=== PATIENT | female | born 1965 | race Hispanic/Latino ===

== ENCOUNTER 2018-11-25 14:02 | Emergency (ER) | payer SELFPAY ==
[~2018-11-25] VITALS: Ht 157.5 cm; Wt 87.1 kg
--- NOTE | 2018-11-25 15:30 | Diagnostic Imaging Report ---
Exam: Lumbar spine series Clinical history: Pain Findings: There is no evidence of acute fracture or malalignment. Degenerative disc disease is noted at L1-L2 level with decrease in disc height and endplate sclerosis. The soft tissue is unremarkable. Impression: 1. No radiographic evidence of acute osseous injury. Degenerative changes as described. Signed by: Dr. Wade Álvarez MD on 11/25/2018 3:27 PM
[2018-11-25 16:11] VITALS: BP 101/67
== END 2018-11-25 16:17 | disposition home or self-care (01) ==
LOC: ER 14:02
DX: M54.5 Low back pain (principal); S39.012A Strain of muscle, fascia and tendon of lower back, initial encounter
CPT/HCPCS: 72110; 99283

== ENCOUNTER → 2024-05-15 | Outpatient (REF) | payer OTHER | LOC: MAMMO 09:00 | PROVIDERS: ATTEND Family Medicine | DX: Z12.31 Encounter for screening mammogram for malignant neoplasm of breast (principal) | CPT/HCPCS: 77067 ==

== ENCOUNTER 2024-11-28 08:00 | Outpatient (RCR) | payer OTHER | END 2024-11-30 | LOC: PT 08:00 | PROVIDERS: ATTEND Physician Assistant | DX: M75.81 Other shoulder lesions, right shoulder (principal) ==

== ENCOUNTER → 2024-12-12 | Day surgery (SDC) | payer OTHER ==
[2024-12-10 09:18] LABS: BASOPHILS % 0.6 % (0.0-1.0); EOSINOPHILS % 1.7 % (0.0-6.0); LYMPHOCYTES % 23.9 % (18.0-39.1); MONOCYTES % 11.1 % (4.4-11.3); NEUTROPHILS % 62.5 % (38.7-80.0); RED CELL DISTRIBUTION WIDTH 14.6 % (11.7-14.4)
[2024-12-10 09:40] LABS: EST GLOMERULAR FILTRATION RATE 104.0 ML/MIN (>=60)
[~2024-12-12] MED LIST: ACETAMINOPHEN 1000 MG/100 ML 100 ML IV ONE; AMLODIPINE BESY10 MG PO; CELEBREX100 MG PO; CETIRIZINE HCL10 MG PO; DEXAMETHASONE SOD PHOS INJ 4 MG/ML SDV ONE; FENTANYL CITRATE/PF 100MCG/2 ML INJ ONE; GABAPENTIN300 MG PO; HYDROCHLOROTHIA25 MG PO; LABETALOL HCL100 MG PO; LEVOTHYROXINE112 MCG PO; LIDOCAINE HCL 2% LOCAL INJ 5 ML SDV VIAL INJ ONE; LOSARTAN POTAS100 MG PO; MIDAZOLAM HCL 2 MG/2 ML VIAL ONE; ONDANSETRON HCL INJ 2MG/ML 2ML 2 MG/ML VIAL ONE; OZEMPIC2 MG/0.75 SC; PANTOPRAZOLE SO40 MG PO; PAROXETINE HCL20 MG PO; PROPOFOL IV EMULSION 10 MG/ML 20 ML VIAL ONE; SEVOFLURANE INHAL SOLN 250 ML PEN BTL ONE; SULFASALAZINE500 MG PO; ULTRAM 50MG50 MG PO
[2024-12-12] MEDS: LACTATED RINGER'S 1,000 ML ONE (10:54)
[2024-12-12 11:24] VITALS: TEMP 97
[2024-12-12 12:30] VITALS: BP 132/75; PULSE 64; RESP 16; O2SAT 98
== END | disposition home or self-care (01) ==
LOC: OR 07:33
PROVIDERS: ATTEND Surgery
DX: D17.79 Benign lipomatous neoplasm of other sites (principal); E11.9 Type 2 diabetes mellitus without complications; I10 Essential (primary) hypertension; Z71.89 Other specified counseling; I83.90 Asymptomatic varicose veins of unspecified lower extremity; I70.213 Atherosclerosis of native arteries of extremities with intermittent claudication, bilateral legs; I45.10 Unspecified right bundle-branch block; Z01.810 Encounter for preprocedural cardiovascular examination; Z01.812 Encounter for preprocedural laboratory examination; Z79.85 Long-term (current) use of injectable non-insulin antidiabetic drugs; Z79.899 Other long term (current) drug therapy
CPT/HCPCS: 22903; 36415 ×2; 80048; 82948; 85025; 88304; 88342; 93005; J0131; J1100; J2003; J2250; J2405; J2704; J3010; J7121

== ENCOUNTER 2024-12-29 08:00 | Outpatient (RCR) | payer OTHER ==
[~2024-12-29 08:00] MED LIST changes: -ACETAMINOPHEN 1000 MG/100 ML 100 ML IV ONE; -DEXAMETHASONE SOD PHOS INJ 4 MG/ML SDV ONE; -FENTANYL CITRATE/PF 100MCG/2 ML INJ ONE; -LIDOCAINE HCL 2% LOCAL INJ 5 ML SDV VIAL INJ ONE; -MIDAZOLAM HCL 2 MG/2 ML VIAL ONE; -ONDANSETRON HCL INJ 2MG/ML 2ML 2 MG/ML VIAL ONE; -PROPOFOL IV EMULSION 10 MG/ML 20 ML VIAL ONE; -SEVOFLURANE INHAL SOLN 250 ML PEN BTL ONE
== END 2024-12-30 ==
LOC: PT 08:00
PROVIDERS: ATTEND Physician Assistant
DX: M75.81 Other shoulder lesions, right shoulder (principal)